=== PATIENT | male | born 1945 | race Caucasian/White ===

== ENCOUNTER → 2018-12-01 | Day surgery (SDC) | payer MEDICARE, OTHER ==
[2018-11-29 13:46] LABS: BASOPHILS % 0.3 % (0.0-1.0); EOSINOPHILS # (AUTO) 0.4 (0.0-0.4); EOSINOPHILS % 6.2 % (0.0-6.0); HEMATOCRIT 36.3 % (38.2-49.6); HEMOGLOBIN 11.2 g/dL (14.0-18.0); LYMPHOCYTES # (AUTO) 2.1 (1.0-3.2); LYMPHOCYTES % 32.2 % (18.0-39.1); MEAN CORPUSCULAR HEMOGLOBIN 26.5 pg (28-32); MEAN CORPUSCULAR HGB CONC 30.9 g/dL (31-35); MEAN CORPUSCULAR VOLUME 85.8 fL (81-99); MONOCYTES # (AUTO) 0.7 (0.2-0.8); MONOCYTES % 10.5 % (4.4-11.3); NEUTROPHILS # (AUTO) 3.2 (2.1-6.9); NEUTROPHILS % 50.2 % (38.7-80.0); PLATELET COUNT 206 x10e3/uL (140-360); RED BLOOD COUNT 4.23 x10e6/uL (4.3-5.7)
--- NOTE | 2018-11-30 15:22 | Diagnostic Imaging Report ---
EXAMINATION: CHEST 2 VIEWS INDICATION: Pre-operative COMPARISON: None FINDINGS: LINES/TUBES:Sternotomy wires intact. LUNGS:The lungs are well-inflated. No focal consolidation or pulmonary edema. PLEURA:No pleural effusion or pneumothorax. MEDIASTINUM:Mild cardiomegaly. BONES/SOFT TISSUES:No acute osseous injury. ABDOMEN:No free air under the diaphragm. IMPRESSION: No focal pneumonia or pulmonary edema. Mild cardiomegaly. Signed by: Radha Allred MD on 11/30/2018 3:19 PM
[~2018-12-01] MED LIST: ADVAIR 250-501 EACH INH; ALLOPURINOL300 MG PO; BUPIVACAINE HCL 0.5% INJ 30 ML VIAL INJ ONE; FENTANYL CITRATE/PF 100MCG/2 ML INJ ONE; FLONASE INH; HYDROCODONE/APAP 10MG-325MG TAB ONE; LEVOFLOXACIN 500MG/D5W 100ML 100 ML IV ONE; LISINOPRIL10 MG PO; METOPROLOL TART50 MG PO; NORCO 10-325 T1 EACH PO; SIMVASTATIN40 MG PO; ULTRAM 50MG50 MG PO
--- OUTSIDE RECORDS SUMMARY | 2018-12-01 07:49 | XMS REPORT | Continuity of Care Document ---
Author Author [facility] Organization [facility] Address Unknown Phone Unavailable Care Team Providers Care Ict Account Manager Name Role Phone [employer] Information [employer] Unavailable Unavailable Problems No Data Provided for This Section Medications No Data Provided for This Section Allergies, Adverse Reactions, Alerts No Known Medication Allergies Immunizations No Data Provided for This Section Results No Data Provided for This Section Pathology Reports No Data Provided for This Section Diagnostic Reports No Data Provided for This Section Consultation Notes No Data Provided for This Section Discharge Summaries No Data Provided for This Section History and Physicals No Data Provided for This Section Vital Signs No Data Provided for This Section Encounters Location Location Details Encounter Type Encounter Number Reason For Visit Attending Provider ADM Date DC Date Status Source Outpatient [id number] LIA DALTON 02/11/2015 Active [facility] Outpatient [id number] LIA DALTON 02/20/2015 Active [facility] Procedures No Data Provided for This Section Assessment and Plan No Data Provided for This Section Plan of Care No Data Provided for This Section Social History No Data Provided for This Section Family History No Data Provided for This Section Advance Directives No Data Provided for This Section Functional Status No Data Provided for This Section
--- OUTSIDE RECORDS SUMMARY | 2018-12-01 07:49 | XMS REPORT ---
[facility] Address Unknown Phone Unavailable Care Team Providers Care Venture Capital Analyst Name Role Phone Patricia QUIGLEY Unavailable Unavailable Payers Payer Name Policy Type Policy Number Effective Date Expiration Date Problems This patient has no known problems. Allergies, Adverse Reactions, Alerts This patient has no known allergies or adverse reactions. Medications This patient has no known medications. Encounters Start Date/Time End Date/Time Encounter Type Admission Type Attending [facility] Facility Care Department Encounter ID 2018-08-31 11:35:00 2018-08-31 11:35:00 Outpatient E [facility] [id number] 2018-08-23 05:47:00 2018-08-23 05:47:00 Outpatient E [facility] [id number] 2018-08-18 06:08:00 2018-08-18 06:08:00 Outpatient [facility] [id number] Results Test Description Test Time Test Comments Text Results Atomic Results Result Comments CHEST 2 VIEWS 2018-11-30 15:18:00 [place] [address] Patient Name: FRANCISCA WDYER JR MR #: [id number] : 1945 Age/Sex: 73/M Req #: [id number] Adm Physician: Ordered by: RALF QUIGLEY MD Report #: [id number] Location: OR Room/Bed: Procedure: [id number] DX/CHEST 2 VIEWS Exam Date: 11/30/18 Exam Time: 1000 REPORT STATUS: Signed EXAMINATION: CHEST 2 VIEWS INDICATION: Pre-operative COMPARISON: None FINDINGS: LINES/TUBES:Sternotomy wires intact. LUNGS:The lungs are well-inflated. No focal consolidation or pulmonary edema. PLEURA:No pleural effusion or pneumothorax. MEDIASTINUM:Mild cardiomegaly. BONES/SOFT TISSUES:No acute osseous injury. ABDOMEN:No free air under the diaphragm. IMPRESSION: No focal pneumonia or pulmonary edema. Mild cardiomegaly. Signed by: Mandi Allred MD on 11/30/2018 3:19 PM Dictated By: MANDI ALLRED MD 1519 Transcribed By: LEELEE on 11/30/18 1519 COPY TO: RALF QUIGLEY MD
--- OUTSIDE RECORDS SUMMARY | 2018-12-01 07:49 | XMS REPORT | Clinical Summary ---
Author Author [facility] Address Unknown Phone Unavailable Care Team Providers Care User Experience Architect Name Role Phone Osbaldo George MD PCP Allergies Not on File Medications Not on file Active Problems Not on file Social History Date Tobacco Use Types Packs/Day Years Used Never Assessed Sex Assigned at Date Recorded Not on file Industry Job Start Date Occupation Not on file Not on file Not on file Travel End Travel History Travel Start No recent travel history available. Last Filed Vital Signs Not on file Plan of Treatment Health Maintenance Due Date Last Done Comments COLONOSCOPY SCREENING 1997 SHINGLES VACCINES (#1) 1997 65+ PNEUMOCOCCAL VACCINE 01/15/2012 (1 of 2 - PCV13) INFLUENZA VACCINE 11/24/2018 Results Not on fileafter 11/30/2017 Insurance Type Payer Benefit Subscriber ID Effective Phone Address Plan / Dates Group Medicare MEDICARE MEDICARE xxxxxxxxxx 2011-P [place]UN[place], PART A AND resent [place] B PPO HUMANA HUMANA xxxxxxxxx 2012- CHOICE Present CARE PPO Advance Directives Patient has advance care planning documents on file. For more information, barry martin contact: Tung Traylor [address] [place] [address]
--- OUTSIDE RECORDS SUMMARY | 2018-12-01 07:49 | XMS REPORT | Summary of Care ---
Author Author Renny MCDONALD, Shannon Deluna Unknown Address Unknown Phone Unavailable Care Team Providers Care Shoe Dresser Name Role Phone SALENA Valdovinos, GE Unavailable Unavailable ARELY Valdovinos, MARIELENA Unavailable Unavailable LILLIAN B[place], DANA Levin Unavailable Unavailable STEFANO MILLER MD Unavailable Unavailable SUMMER [place], SHIRA Unavailable Unavailable SALENA [place], GE COLES Unavailable Unavailable Unavailable Unavailable Functional Status Name Dates Details Functional status health issues are not documented Status: Name Dates Details Cognitive status health issues are not documented Status: Problems Name Dates Details Aortic Valve Replacement Status: Active Chest pain at rest (786.50, R07.9) Status: Active Lower back pain (724.2, M54.5) Status: Active Asymptomatic hyperuricemia (790.6, E79.0) Status: Active 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, 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) Status: Active 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, 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) Status: Active Sleep apnea (780.57, G47.30) Status: Active Abdominal aortic aneurysm without mention of rupture (441.4, I71.4) Status: Active Essential (primary) hypertension (401.9, I10) Status: Active Hearing loss (389.9, H91.90) Status: Active Coronary artery disease (414.00, I25.10) Status: Active Sciatica (724.3, M54.30) Status: Active Apnea, sleep (780.57, G47.30) Status: Active Hyperlipidemia (272.4, E78.5) Status: Active Obstructive sleep apnea (327.23, G47.33) Status: Active Diabetes mellitus (250.00, E11.9) Status: Active Gout (274.9, M10.9) Status: Active Joint pain of lower extremity (719.48, M25.50) Status: Active Anxiety (300.00, F41.9) Status: Active Aortic dissection (441.00, I71.00) Status: Active Carotid artery dissection (443.21, I77.71) Status: Active Descending thoracic aortic dissection (441.01, I71.01) Status: Active Thoracic aortic aneurysm (441.2, I71.2) Status: Active Osteoarthritis (715.90, M19.90) Status: Active Diastolic dysfunction (429.9, I51.89) Status: Active Neck pain (723.1, M54.2) Status: Active Pain, joint, shoulder (719.41, M25.519) Status: Active Chronic pain of both knees (719.46, M25.561) Status: Active SOB (shortness of breath) (786.05, R06.02) Status: Active COPD (chronic obstructive pulmonary disease) (496, J44.9) Status: Active MCDUFFIE (dyspnea on exertion) (786.09, R06.09) Status: Active Heart failure (428.9, I50.9) Status: Active IH (inguinal hernia) (550.90, K40.90) Status: Active Choudhary catheter in place (V45.89, Z96.0) Status: Active Urinary retention (788.20, R33.9) Status: Active Medications Name Dates Details Furosemide 40 MG Oral Tablet TAKE 1 TABLET TWICE DAILY. Quantity: 60 GE MARTINO M.D. Active Simvastatin 20 MG Oral Tablet TAKE 1 TABLET DAILY DIRECTED. * Quantity: 90 Refills: 2 GE MARTINO M.D. Active Hydrocodone-Acetaminophen 5-500 MG TABS TAKE 1 TABLET TWICE DAILY * Quantity: 60 Refills: 0 GE MARTINO M.D. * Start : 29-Sep-2011 Active Fluticasone Propionate 50 MCG/ACT Nasal Suspension USE 2 SPRAYS IN EACH NOSTRIL ONCE DAILY * Quantity: 3 Refills: 3 GE MARTINO M.D. * Start : 12-Dec-2012 Active 16 GM Bottle Metoprolol Succinate ER 50 MG Oral Tablet Extended Release 24 Hour TAKE 1 TABLET TWICE DAILY * Quantity: 60 Refills: 5 GE MARTINO M.D. Active Allopurinol 300 MG Oral Tablet TAKE 1 TABLET DAILY * Quantity: 90 Refills: 3 GE MARTINO M.D. * Start : 16-Nov-2013 Active Magnesium Oxide 400 MG Oral Tablet TAKE 1 TABLET TWICE DAILY. * Refills: 0 GE MARTINO M.D. * Start : 14-Jan-2015 Active Potassium 99 MG Oral Tablet TAKE 2 TABLET DAILY * Refills: 0 R.N. Active Proventil HFA 108 (90 Base) MCG/ACT Inhalation Aerosol Solution INHALE 2 PUFFS TWICE DAILY * Quantity: 1 Refills: 5 GE MARTINO M.D. * Start : 26-Oct-2016 Active 6.7 GM Inhaler Lisinopril 10 MG Oral Tablet TAKE 1 TABLET DAILY (PT UNSURE OF MG) * Refills: 0 R.N. * Start : 10-Sep-2017 Active 15 Tablet Bottle Celecoxib 200 MG Oral Capsule Take 1 tablet no more than 3-4x a week as needed * Quantity: 32 Refills: 1 GE MARTINO M.D. * Start : 10-Sep-2017 Active Advair Diskus 250-50 MCG/DOSE Inhalation Aerosol Powder Breath Activated INHALE 1 PUFF EVERY 12 HOURS. * Quantity: 3 Refills: 3 GE MARTINO M.D. * Start : 13-Jun-2018 Active 60 Each Pack Tamsulosin HCl - 0.4 MG Oral Capsule TAKE 1 CAPSULE BEDTIME * Quantity: 90 Refills: 3 MARIELENA MCGEE M.D. * Start : 21-Sep-2018 Active Allergies and Adverse Reactions Name Dates Details Penicillins (Allergy) Status: Active Slo-Niacin (Allergy) Status: Active Past Medical History Name Dates Details History of aortic aneurysm (V12.59, Z86.79) Status: Resolved History of Aortic dissection (441.00, I71.00) Status: Resolved History of essential hypertension (V12.59, Z86.79) Status: Resolved History of Extremity pain (729.5, M79.609) Status: Resolved History of hyperlipidemia (V12.29, Z86.39) Status: Resolved Procedures Procedure Dates Details History of Back Surgery Completed History of Aortic Aneurysm Repair Completed History of Knee Surgery Completed Aortic Valve Replacement Immunization Name Dates Details Immunizations not documented Social History Name Dates Details - Status: Name Dates Details Former smoker Never smoker Never smoker Smoker. current status unknown Vital Signs Date Test Result Details [id number]-[id number] BP Systolic 142 mm[Hg] Status: Comments: Location: LUE; Position: Sitting BP Diastolic 69 mm[Hg] Status: Comments: Location: LUE; Position: Sitting Height 70 in Status: Weight 271.375 lb Status: Body Mass Index Calculated 38.94 kg/m2 Status: Body Surface Area Calculated 2.38 m2 Status: Temperature 98.1 f Status: Comments: Method: Oral Heart Rate 71 /min Status: Comments: Location: L Brachial Artery; 45-Asm-34932:49 BP Systolic 131 mm[Hg] Status: Comments: Location: LUE; Position: Sitting BP Diastolic 77 mm[Hg] Status: Comments: Location: LUE; Position: Sitting Height 70 in Status: Weight 260 lb Status: Body Mass Index Calculated 37.31 kg/m2 Status: Body Surface Area Calculated 2.33 m2 Status: Temperature 97.7 f Status: Comments: Method: Temporal Heart Rate 80 /min Status: Results Date Description Value Details Results not documented Plan of Care Name Dates Details Planned Observations Planned Goals not documented Planned Encounters Appointment; SHIRA WHEELER M.D. On: 07-Dec-2018 8:45 Appointment; GE MARTINO M.D. On: 02-Jan-2019 12:40 Instructions Name Dates Details Instructions not documented Encounters Appointment; GE MARTINO M.D. Encounter Diagnosis: Problem not documented On: 26-Oct-2016 12:20 Appointment; OBED MONTERROSO Encounter Diagnosis: Problem not documented On: 11-Jan-2017 10:30 Appointment; GE MARTINO M.D. Encounter Diagnosis: Problem not documented On: 11-Jan-2017 11:40 Appointment; GE MARTINO M.D. Encounter Diagnosis: Problem not documented On: 12-Jul-2017 11:00 Appointment; GE MARTINO M.D. Encounter Diagnosis: Problem not documented On: 14-Jul-2017 12:00 Appointment; GE MARTINO M.D. Encounter Diagnosis: Problem not documented On: 14-Jul-2017 17:00 Appointment; GE MARTINO M.D. Encounter Diagnosis: Problem not documented On: 06-Sep-2017 16:00 Appointment; JAKE SHAH M.D. Encounter Diagnosis: Problem not documented On: 10-Sep-2017 11:00 Appointment; JAKE SHAH M.D. Encounter Diagnosis: Problem not documented On: 24-Sep-2017 9:00 Appointment; OBED MONTERROSO Encounter Diagnosis: Problem not documented On: 10-Jan-2018 11:30 Appointment; GE MARTINO M.D. Encounter Diagnosis: Problem not documented On: 10-Jan-2018 12:40 Appointment; DARRIAN CUMMINS M.D. Encounter Diagnosis: Problem not documented On: 14-Jan-2018 14:00 Appointment; JAKE SHAH M.D. Encounter Diagnosis: Problem not documented On: 31-Jan-2018 9:00 Appointment; DARRIAN CUMMINS M.D. Encounter Diagnosis: Problem not documented On: 03-Feb-2018 13:30 Appointment; DARRIAN CUMMINS M.D. Encounter Diagnosis: Problem not documented On: 14-Feb-2018 8:00 Appointment; ANNAMARIE SHORT P.A. Encounter Diagnosis: Problem not documented On: 25-Feb-2018 10:45 Appointment; DARRIAN CUMMINS M.D. Encounter Diagnosis: Problem not documented On: 23-Mar-2018 12:45 Appointment; DES MONTERROSO Encounter Diagnosis: Problem not documented On: 27-May-2018 11:00 Appointment; GE MARTINO M.D. Encounter Diagnosis: Problem not documented On: 13-Jun-2018 13:00 Appointment; BELTRAN, STRESS Encounter Diagnosis: Problem not documented On: 24-Jun-2018 8:00 Appointment; GE MARTINO M.D. Encounter Diagnosis: Problem not documented On: 04-Jul-2018 13:00 Appointment; GE MARTINO M.D. Encounter Diagnosis: Problem not documented On: 11-Jul-2018 12:00 Appointment; STEFANO MILLER M.D. Encounter Diagnosis: Problem not documented On: 25-Jul-2018 9:15 Appointment; STEFANO MILLER M.D. Encounter Diagnosis: Problem not documented On: 01-Aug-2018 13:00 Appointment; STEFANO MILLER M.D. Encounter Diagnosis: Problem not documented On: 18-Aug-2018 12:00 Appointment; STEFANO MILLER M.D. Encounter Diagnosis: Problem not documented On: 29-Aug-2018 13:00 Appointment; SHIRA WHEELER M.D. Encounter Diagnosis: Problem not documented On: 21-Sep-2018 9:30 Appointment; STEFANO MILLER M.D. Encounter Diagnosis: Problem not documented On: 26-Sep-2018 10:15
[2018-12-01 12:10] VITALS: BP 117/59
--- NOTE | 2018-12-06 11:19 | Operative Report ---
DATE OF PROCEDURE: 12/01/2018 SURGEON: Carlos Eduardo Miller MD PREOPERATIVE DIAGNOSES: Left scrotal hematoma and left orchalgia. POSTOPERATIVE DIAGNOSES: Left scrotal hematoma and left orchalgia. OPERATIVE PROCEDURE PERFORMED: Left simple orchiectomy. ANESTHESIA: General anesthesia. ESTIMATED BLOOD LOSS: Minimal. INDICATIONS: Mr. Cristo Avila is a 73-year-old gentleman, who ended up with bilateral scrotal hematomas after bilateral inguinal hernia repair. Despite cord blocks and anti-inflammatories, he has severe persistent left orchialgia. He now presents for definitive surgical management of this problem. PROCEDURE IN DETAIL: The patient was brought in the operating room, placed in supine position. After initiation of general anesthesia, he was prepped and draped in the usual sterile fashion. After local infiltration using 0.25% Marcaine. A horizontal incision was made over the left hemiscrotum and dissection was carried out through the layers of the scrotum. The extra vaginal orchidectomy was performed. There was moderate adherence of the tunica vaginalis with surrounding scrotal layers, presumably due to the previous hematoma. The tunics were carefully dissected from the surrounding structures and hemostasis was obtained using electrocautery device. The cord structures were noted in the cord was clamped in three bundles. Each was individually clamped and cut. The testicle was then sent to pathology for microscopic analysis. Each of the three bundles was doubly ligated with silk and the cut edges were fulgurated; this was allowed to retract up into the ring. After hemostasis was secured, the scrotum was closed in layers, the skin being closed with a running chromic suture. The wound was then cleaned and dried and covered with Telfa and scrotal fluffs and placed in a scrotal support. Anesthesia was reversed and the patient was transferred to a bed and taken to the postanesthesia care unit in good condition. Of note, the needle and instrument count were correct at the conclusion of the case. Carlos Eduardo Miller MD HLW/MODL /[id number] MARTÍNEZ
== END | disposition home or self-care (01) ==
LOC: OR 07:41
PROVIDERS: ATTEND Urology
DX: K91.870 Postprocedural hematoma of a digestive system organ or structure following a digestive system procedure (principal); N50.1 Vascular disorders of male genital organs; Z01.810 Encounter for preprocedural cardiovascular examination; Z01.812 Encounter for preprocedural laboratory examination; Z01.811 Encounter for preprocedural respiratory examination; Z88.0 Allergy status to penicillin; E78.5 Hyperlipidemia, unspecified; M19.90 Unspecified osteoarthritis, unspecified site; J44.1 Chronic obstructive pulmonary disease with (acute) exacerbation; I25.10 Atherosclerotic heart disease of native coronary artery without angina pectoris; I10 Essential (primary) hypertension; Z95.2 Presence of prosthetic heart valve
CPT/HCPCS: 36415; 54520; 71046; 85025; 88307; 93005; J1956; J3010

== ENCOUNTER → 2020-09-06 | Outpatient (CLI) | payer MEDICARE, OTHER ==
[~2020-09-06] MED LIST changes: -BUPIVACAINE HCL 0.5% INJ 30 ML VIAL INJ ONE; -FENTANYL CITRATE/PF 100MCG/2 ML INJ ONE; -HYDROCODONE/APAP 10MG-325MG TAB ONE; -LEVOFLOXACIN 500MG/D5W 100ML 100 ML IV ONE
[2020-09-06 13:22] LABS: CREATININE, SERUM 1.23 mg/dL (0.72-1.25)
[2020-09-06 13:23] LABS: PROTHROMBIN TIME 13.8 seconds (11.9-14.5)
== END ==
LOC: DX 12:51
PROVIDERS: ATTEND Internal Medicine Infectious Disease
DX: M86.171 Other acute osteomyelitis, right ankle and foot (principal)
CPT/HCPCS: 36415; 36569; 71045; 82565; 84520; 85049; 85610; 85730